=== PATIENT | male | born 1995 | race Hispanic/Latino ===

== ENCOUNTER 2022-02-17 20:20 | Emergency (ER) | payer SELFPAY ==
[2022-02-17] MEDS ORDERED: Ibuprofen 200 MG TAB ONE (21:35)
[2022-02-17 21:49] LABS: SARS-CoV-2 NAA Rapid Test Not Detected (NotDetected)
== END 2022-02-17 22:06 | disposition home or self-care (01) ==
LOC: CSHERS 20:20
DX: J10.1 Influenza due to other identified influenza virus with other respiratory manifestations (principal); Z20.822 Contact with and (suspected) exposure to COVID-19
CPT/HCPCS: 99283